=== PATIENT | male | born 1945 | race Caucasian/White ===

== ENCOUNTER 2018-04-22 11:33 | Emergency (ER) | payer OTHER ==
[~2018-04-22] VITALS: Ht 170.2 cm; Wt 102.1 kg
[~2018-04-22 11:33] MED LIST: AMARIL; ASA81 MG PO; COZAAR25 MG; LANTUS100 U/ML; LOTREL 10-20 MG1 CAP PO; METFORMIN HCL1000 M1; METOPROLOL SUCC50 MG; PLAVIX75 MG PO; SIMVASTATIN20 MG; TOPROL XL25 MG PO
== END 2018-04-22 19:14 | disposition home or self-care (01) ==
LOC: ER 11:33 → CPU-OBS 11:53 → ER 11:53
DX: R07.89 Other chest pain (principal)

== ENCOUNTER → 2018-07-26 | Emergency (ER) | payer OTHER ==
[~2018-07-26] VITALS: Ht 170.2 cm; Wt 101.6 kg
[~2018-07-26] MED LIST changes: +HYDROCHLOROTHIA25 MG
== END | disposition left against medical advice (07) ==
LOC: ER 11:07 → CPU-OBS 11:49
DX: R07.89 Other chest pain (principal); R06.02 Shortness of breath

== ENCOUNTER → 2018-10-21 | Outpatient (CLI) | payer OTHER | END | disposition home or self-care (01) | LOC: NUCLEAR 10-14 10:00 | DX: I20.9 Angina pectoris, unspecified (principal) | CPT/HCPCS: 78452; 93017; A9500; J0153 ==

== ENCOUNTER 2019-09-22 13:53 | Inpatient (IN) | payer OTHER ==
[~2019-09-22] VITALS: Ht 170.2 cm; Wt 113.4 kg
[2019-09-26] MEDS ORDERED: AMLODIPINE BESYL5 MG PO (09:45)
[2019-09-26] MEDS ORDERED: SIMVASTATIN40 MG PO (09:46)
[2019-09-26] MEDS ORDERED: RAMIPRIL5 MG PO (09:47)
== END 2019-09-26 13:35 | disposition designated cancer center or children's hospital (05) | DRG 303 ==
LOC: ER 13:53 → ICU 09-23 19:26
PROVIDERS: ADMIT Internal Medicine Cardiovascular Disease
PROC: BW28ZZZ Computerized Tomography (CT Scan) of Head (ICD-10-PCS; principal; 2019-09-23)
DX: I25.10 Atherosclerotic heart disease of native coronary artery without angina pectoris (principal); I48.0 Paroxysmal atrial fibrillation; I10 Essential (primary) hypertension; I08.0 Rheumatic disorders of both mitral and aortic valves; E11.65 Type 2 diabetes mellitus with hyperglycemia; R07.89 Other chest pain; Z79.4 Long term (current) use of insulin; Z79.01 Long term (current) use of anticoagulants; Z03.818 Encounter for observation for suspected exposure to other biological agents ruled out